=== PATIENT | female | born 1970 | race Caucasian/White ===

== ENCOUNTER 2017-05-25 11:52 | Emergency (ER) | payer OTHER ==
[~2017-05-25] VITALS: Ht 154.9 cm; Wt 77.5 kg
[2017-05-25 11:57] VITALS: Ht 154.9 cm; Wt 77.5 kg
[2017-05-25] MEDS ORDERED: IBUPROFEN 600 MG TAB PO ONE (13:30)
[2017-05-25] MEDS ORDERED: IBUP-1542 PO (14:36)
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
--- NOTE | 2017-05-25 14:51 | RADRPT ---
PROCEDURE: XR Lumbar Spine. CLINICAL INDICATION: Low back pain. 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 There is maintenance of normal lumbar lordosis. Alignment is intact. No acute fracture or disloca tion is seen. The vertebral body heights and disk spaces are preserved. IMPRESSION: 1. 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 If s urgical intervention is considered, consider correlation with plain film radiographs of the thoracic spine for numbering system confirmation. 2. No acute fracture or dislocation. RPTAT: QQ .Rashmi Abdi MD, Date Time Electronically viewed and signed by .Rashmi Abdi MD, on 05/25/2017 14:50 .N/
== END 2017-05-25 14:59 | disposition home or self-care (01) ==
LOC: FTE 11:52
DX: S39.92XA Unspecified injury of lower back, initial encounter (principal); V49.9XXA Car occupant (driver) (passenger) injured in unspecified traffic accident, initial encounter
CPT/HCPCS: 72100; Z7502; Z7610